=== PATIENT | male | born 1980 | race Caucasian/White ===

== ENCOUNTER 2017-06-11 00:12 | Emergency (ER) | payer OTHER ==
[2017-06-11] MEDS ORDERED: Acetaminophen 500 MG Tab PO ONE (00:34)
--- NOTE | 2017-06-11 00:35 | EDM.PDOC ---
ED HPI GENERAL MEDICAL PROBLEM - General Chief Complaint: Head Injury Stated Complaint: PT FELL AND HURT HEAD Time Seen by Provider: 06/11/17 00:25 - History of Present Illness INITIAL COMMENTS - FREE TEXT/NARRATIVE: HISTORY AND PHYSICAL: History of present illness: Patient is a healthy 37-year-old male who states that he was at work when he slipped and fell hitting the back of his head and neck on a footboard. He did not pass out or blackout and he was not dazed after this event. He has had gradual onset of an occipital headache and there is soft tissue swelling at the scalp there. He is not dizzy or lightheaded he has had no nausea vomiting and has no lower back pain or other extremity pain. He says that his mid back is hurting him in his thoracic area. Patient took Aleve and Motrin prior to coming here with the last dose at 9 PM. Patient says he is here because his work doctor recommended that he come for a CAT scan and x-ray. Patient has been ambulating without issue and has no weakness in any of his extremities. He has no chest pain or shortness of breath no abdominal pain or pelvis pain. Review of systems: As per history of present illness and below otherwise all systems reviewed and negative. Past medical history: As per history of present illness and as reviewed below otherwise noncontributory. Surgical history: As per history of present illness and as reviewed below otherwise noncontributory. Social history: No reported history of drug or alcohol abuse. Family history: As per history of present illness and as reviewed below otherwise noncontributory. Physical exam: Gen.: Well-developed well-nourished man who is nontoxic and ambulated into the ED without distress. Vital signs of been reviewed by me. HEENT: Atraumatic except for a small area of soft tissue swelling in an old distribution at the occiput without defects or bony deformity, there is tenderness in this region,, normocephalic, pupils reactive, negative for conjunctival pallor or scleral icterus, mucous membranes moist, throat clear, neck supple, nontender, trachea midline. TMs are normal bilaterally. Lungs: Clear to auscultation, breath sounds equal bilaterally, chest nontender. Heart: S1S2, regular rate and rhythm no overt murmurs Abdomen: Soft, nondistended, nontender. Nabs Pelvis: Stable nontender. Genitourinary: Deferred. Rectal: Deferred. Extremities: Atraumatic, full range of motion without defects or deficits negative for cords or calf pain. Neurovascular unremarkable. Neuro: Awake, alert, oriented. Cranial nerves II through XII unremarkable. Cerebellum unremarkable. Motor and sensory unremarkable throughout. Exam nonfocal. Gait intact Back: There are no midline step-offs or defects of the thoracic or lumbar spine but there is some tenderness in the thoracic region diffusely without any one focal point of point tenderness. There is no gross soft tissue swelling appreciated. There is no posterior rib tenderness Diagnostics: CT scan of the head thoracic back x-rays Therapeutics: Tylenol ice pack Impression: Fall with closed head injury/scalp contusion and mild concussion, thoracic back contusion Definitive disposition and diagnosis as appropriate pending reevaluation and review of above. Posterior Head Pain Score (Numeric/FACES): 8 - Related Data Allergies Allergy/AdvReac Type Severity Reaction Status Date / Time No Known Allergies Allergy Verified 06/11/17 00:32 Home Meds: Home Meds Medication For Heart Burn 06/11/17 [History] Past Medical History - Past Health History Medical/Surgical History: Denies Medical/Surgical History Social & Family History - Tobacco Use Smoking Status *Q: Current Every Day Smoker Years of Tobacco use: 20 - Alcohol Use Days Per Week of Alcohol Use: 0 - Recreational Drug Use Recreational Drug Use: No ED ROS GENERAL - Review of Systems Review Of Systems: ROS reveals no pertinent complaints other than HPI. ED EXAM, HEAD INJURY - Physical Exam Exam: See Below (See dictation) Course - Vital Signs Last Recorded V/S: Last Vital Signs Temp 36.4 C 06/11/17 00:24 Pulse 91 06/11/17 00:24 Resp 20 06/11/17 00:24 BP 134/86 06/11/17 00:24 Pulse Ox 96 06/11/17 00:24 - Orders/Labs/Meds Orders: Active Orders 24 hr Category Date Time Status Head wo Cont [CT] Stat Exams 06/11/17 00:33 Taken Thoracic Spine 3V [CR] Stat Exams 06/11/17 00:33 Taken Meds: Medications Discontinued Medications Generic Name Dose Route Start Last Admin Trade Name Freq PRN Reason Stop Dose Admin Acetaminophen 1,000 mg 06/11/17 00:34 06/11/17 00:40 Tylenol Extra Strength PO 06/11/17 00:35 1,000 mg ONETIME ONE Administration Departure - Departure Time of Disposition: :29 Disposition: Home, Self-Care 01 Condition: Good Clinical Impression: Concussion injury of brain Fall Qualifiers: Encounter type: initial encounter Qualified Code(s): W19.XXXA - Unspecified fall, initial encounter Contusion of back wall of thorax Qualifiers: Encounter type: initial encounter Laterality: unspecified laterality Qualified Code(s): S20.229A - Contusion of unspecified back wall of thorax, initial encounter Scalp contusion Qualifiers: Encounter type: initial encounter Qualified Code(s): S00.03XA - Contusion of scalp, initial encounter - Discharge Information Referrals: PCP,None [Primary Care Provider] - Forms: ED Department Discharge Additional Instructions: The following information is given to patients seen in the emergency department who are being discharged to home. This information is to outline your options for follow-up care. We provide all patients seen in our emergency department with a follow-up referral. The need for follow-up, as well as the timing and circumstances, are variable depending upon the specifics of your emergency department visit. If you don't have a primary care physician on staff, we will provide you with a referral. We always advise you to contact your personal physician following an emergency department visit to inform them of the circumstance of the visit and for follow-up with them and/or the need for any referrals to a consulting specialist. The emergency department will also refer you to a specialist when appropriate. This referral assures that you have the opportunity for followup care with a specialist. All of these measure are taken in an effort to provide you with optimal care, which includes your followup. Under all circumstances we always encourage you to contact your private physician who remains a resource for coordinating your care. When calling for followup care, please make the office aware that this follow-up is from your recent emergency room visit. If for any reason you are refused follow-up, please contact the [facility] emergency department at and ask to speak to the emergency department charge nurse. [facility] Primary care- Internal Medicine and Family [address] [address] Expect Aches and pains from the bruising and injuries from this fall. Please follow-up with your work physician as indicated by your employer. Use over-the- counter ibuprofen/Aleve or Tylenol for pain. Rest and return to ER as needed and as discussed - My Orders Last 24 Hours: My Active Orders 06/11/17 00:33 Head wo Cont [CT] Stat Thoracic Spine 3V [CR] Stat - Assessment/Plan Last 24 Hours: My Active Orders 06/11/17 00:33 Head wo Cont [CT] Stat Thoracic Spine 3V [CR] Stat
[2017-06-11 01:32] VITALS: BP 126/69
--- NOTE | 2017-06-11 10:06 | CT ---
EXAM DATE: 06/11/17 PATIENT'S AGE: 37 Patient: RC HOYT Facility: [place], [place] Site . Site : 1980 Study: CT Head [id number]/[id number] 1:05:30 AM Ordering Physician: Chaka Linda Final Report: INDICATION: Fall today, posterior QUIÑONES since Mid back pain since fall CT SCAN HEAD WITHOUT CONTRAST TECHNIQUE: Direct axial non-contrast images of the head from foramen magnum to vertex are provided. FINDINGS: Axial images of the brain demonstrate a normal appearance of the ventricles, sulci and basal cistern. There is no evidence of intracranial hemorrhage, infarct, mass or mass effect. Hernandez-white differentiation is normal throughout. Visualized mastoid air cells and middle ear cavities are clear. The visualized paranasal sinuses are clear. The orbits are symmetric. Calvarium intact. CONCLUSION: Unremarkable unenhanced head CT. Dictated by: Héctor Ferreira MD @ 06/11/2017 01:12:08 (Electronic Signature) Report Signed by Proxy. JUAN
--- NOTE | 2017-06-11 10:06 | CR ---
EXAM DATE: 06/11/17 PATIENT'S AGE: 37 Patient: RC HOYT Facility: [place], [place] Site . Site : 1980 Study: XRay Spine Thoracic [id number]/13/2018 1:05:12 AM Ordering Physician: Chaka Linda Final Report: INDICATION: Pain after fall. TECHNIQUE: Thoracic spine 3 view. COMPARISON: None FINDINGS: Bones: Alignment is normal. No fractures or significant bone lesions. Joints: Disc spaces and facets are unremarkable. Soft tissues: Unremarkable. IMPRESSION: Unremarkable thoracic spine. Dictated by Héctor Ferreira MD @ Jun 11 2017 1:09AM (Electronic Signature) Report Signed by Proxy. JUAN
== END 2017-06-11 01:35 | disposition home or self-care (01) ==
LOC: MW.ED 00:12
DX: S06.0X9A Concussion with loss of consciousness of unspecified duration, initial encounter (principal); S20.229A Contusion of unspecified back wall of thorax, initial encounter; F17.210 Nicotine dependence, cigarettes, uncomplicated; W01.0XXA Fall on same level from slipping, tripping and stumbling without subsequent striking against object, initial encounter; Y99.0 Civilian activity done for income or pay
CPT/HCPCS: 70450; 72072; 99284; A9270